=== PATIENT | male | born 1990 | race Caucasian/White ===

== ENCOUNTER 2016-10-06 21:25 | Emergency (ER) | payer MEDICAID ==
[2016-10-06 21:35] VITALS: TEMP 97.7
[2016-10-06 22:31] LABS: % IMMATURE GRANULYOCYTES 0.4 % (0.0-1.1); ABSOLUTE IMMATURE GRANULOCYTES 0.04 10^3/uL (0.00-0.10); ADD DIFF? NO; ADD MORPH? NO; ADD SCAN? NO; ATYPICAL LYMPHOCYTE FLAG 0 (0-99); FRAGMENT RBC FLAG 0 (0-99); HEMATOCRIT 49.9 % (40.0-51.0); HEMOGLOBIN 17.5 g/dL (13.7-17.5); LEFT SHIFT FLG 0 (0-99); LIPEMIA HEMOLYSIS FLAG 90 (0-99); MEAN CELL HEMOGLOBIN 30.7 pg (27.9-34.1); MEAN CELL HEMOGLOBIN CONCENTR. 35.1 g/dL (32.4-36.7); MEAN CELL VOLUME 87.5 fL (81.5-99.8); MEAN PLATELET VOLUME 10.7 fL (8.7-11.7); PLATELET CLUMPS FLAG 0 (0-99); PLATELET COUNT 230 10^3/uL (150-400); RED CELL DISTRIBUTION WIDTH 11.9 % (11.5-15.2)
[2016-10-06 22:41] LABS: ANION GAP 12 mEq/L (8-16); CALCIUM 9.6 mg/dL (8.5-10.4); CARBON DIOXIDE 25 mEq/l (22-31); CHLORIDE 103 mEq/L (97-110); CREATININE 0.9 mg/dL (0.7-1.3); GLOMERULAR FILTRATION RATE > 60; GLUCOSE 87 mg/dL (70-100); POTASSIUM 4.5 mEq/L (3.5-5.2); SODIUM 140 mEq/L (134-144)
--- NOTE | 2016-10-06 22:46 | EDPHY ---
H & P Stated Complaint: polyuria and waking up hungry x2 months, concered about DM Time Seen by Provider: 10/06/16 21:34 HPI/ROS: Chief complaint: Increased hunger and increased urination History of present illness: This is a 26-year-old male who presents to the emergency department for evaluation of increased hunger and increased urination. Patient reports he has had symptoms for the last 2 months. They have been persistent. He denies precipitating factors. He denies alleviating or aggravating factors. He denies other associated signs or symptoms including no increased thirst, no fevers, no actual pain including no abdominal pain, no nausea, vomiting or diarrhea, no dysuria or hematuria. He is concerned he may have diabetes. Review of systems: A 10 point review of systems was obtained and other than described above was negative - Personal History Current Tetanus/Diphtheria Vaccine: Yes Current Tetanus Diphtheria and Acellular Pertussis (TDAP): Yes Tetanus Vaccine Date: 2015 - Medical/Surgical History Hx Asthma: No Hx Chronic Respiratory Disease: No Hx Diabetes: No Hx Cardiac Disease: No Hx Renal Disease: No Hx Cirrhosis: No Hx Alcoholism: No Hx HIV/AIDS: No Hx Splenectomy or Spleen Trauma: No Other PMH: None - Social History Smoking Status: Never smoked - Physical Exam Exam: General Appearance: Alert, nontoxic. Eyes: Pupils equal and round no pallor or injection. ENT, Mouth: Mucous membranes moist. Respiratory: There are no retractions, lungs are clear to auscultation. Cardiovascular: Regular rate and rhythm. Gastrointestinal: Abdomen is soft and non tender, no masses, bowel sounds normal. Neurological: Alert and oriented x4. Strength and sensation intact and symmetrical. Skin: Warm and dry, no rashes. Musculoskeletal: Neck is supple non tender. Extremities are symmetrical, full range of motion. Psychiatric: Patient is oriented X 3, there is no agitation. Constitutional: Initial Vital Signs Temperature (C) 36.5 C 10/06/16 21:34 Heart Rate 69 10/06/16 21:34 Respiratory Rate 12 10/06/16 21:34 Blood Pressure 138/80 H 10/06/16 21:34 O2 Sat (%) 95 10/06/16 21:34 O2 Delivery Mode Room Air Allergies/Adverse Reactions: No Known Allergies Allergy (Verified 04/17/14 00:35) Home Medications: Medication Instructions Recorded NK [No Known Home Meds] 10/06/16 Medical Decision Making ED Course/Re-evaluation: Patient seen under the supervision of my secondary supervising physician Dr. Randy Kang. Patient presents to the emergency department reporting increased hunger and increased urination over the last 2 months. On presentation he is nontoxic. Afebrile and vital signs are stable. Physical exam is unremarkable. CBC, chemistry and urinalysis are unremarkable. At this time I do not appreciate evidence of need for further emergency department intervention or inpatient management. I have had a lengthy discussion with him on the importance of following up with a primary care doctor for further evaluation and care of his symptoms. Referral information is provided. Home care is discussed. Return precautions are given. Patient voiced understanding and agreement with plan. Differential Diagnosis: Included but not limited to diabetes it associated complications, infectious pathology including urinary tract infections, endocrine dysfunction - Data Points Laboratory Results: Laboratory Results 10/06/16 22:15 10/06/16 22:15 10/06/16 10/06/16 22:15 22:15 WBC 10.19 10^3/uL H 10^3/uL (3.80-9.50) RBC 5.70 10^6/uL 10^6/uL (4.40-6.38) Hgb 17.5 g/dL g/dL (13.7-17.5) Hct 49.9 % % (40.0-51.0) MCV 87.5 fL fL (81.5-99.8) MCH 30.7 pg pg (27.9-34.1) MCHC 35.1 g/dL g/dL (32.4-36.7) RDW 11.9 % % (11.5-15.2) Plt Count 230 10^3/uL 10^3/uL (150-400) MPV 10.7 fL fL (8.7-11.7) Neut % (Auto) 44.3 % % (39.3-74.2) Lymph % (Auto) 41.4 % % (15.0-45.0) [place] % (Auto) 9.1 % % (4.5-13.0) Eos % (Auto) 3.9 % % (0.6-7.6) Baso % (Auto) 0.9 % % (0.3-1.7) Nucleat RBC Rel Count 0.0 % % (0.0-0.2) Absolute Neuts (auto) 4.51 10^3/uL 10^3/uL (1.70-6.50) Absolute Lymphs (auto) 4.22 10^3/uL H 10^3/uL (1.00-3.00) Absolute Monos (auto) 0.93 10^3/uL H 10^3/uL (0.30-0.80) Absolute Eos (auto) 0.40 10^3/uL 10^3/uL (0.03-0.40) Absolute Basos (auto) 0.09 10^3/uL 10^3/uL (0.02-0.10) Absolute Nucleated RBC 0.00 10^3/uL 10^3/uL (0-0.01) Immature Gran % 0.4 % % (0.0-1.1) Immature Gran # 0.04 10^3/uL 10^3/uL (0.00-0.10) Sodium 140 mEq/L mEq/L (134-144) Potassium 4.5 mEq/L mEq/L (3.5-5.2) Chloride 103 mEq/L mEq/L (97-110) Carbon Dioxide 25 mEq/l mEq/l (22-31) Anion Gap 12 mEq/L mEq/L (8-16) BUN 13 mg/dL mg/dL (7-23) Creatinine 0.9 mg/dL mg/dL (0.7-1.3) Estimated GFR > 60 Glucose 87 mg/dL mg/dL (70-100) Calcium 9.6 mg/dL mg/dL (8.5-10.4) Departure - Departure Disposition: Home, Routine, Self-Care Clinical Impression: Polyphagia, Polyuria Condition: Good Instructions: Polyuria (ED) Additional Instructions: Follow-up with a primary care doctor for recheck If symptoms worsen or new symptoms develop return to the emergency room for recheck Referrals: NONE *PRIMARY CARE P,. [Primary Care Provider] - As per Instructions [facility],. [Clinic] - As per Instructions Nikos Draper MD [Medical Doctor] - As per Instructions
[2016-10-06 22:55] VITALS: BP 134/84; PULSE 90; RESP 14; O2SAT 92
== END 2016-10-06 22:55 | disposition home or self-care (01) ==
DX: R35.8 Other polyuria (principal); R63.2 Polyphagia